=== PATIENT | male | born 1985 | race Caucasian/White ===

== ENCOUNTER 2018-08-03 18:28 | Emergency (ER) | payer BC ==
[2018-08-03 19:09] VITALS: BP 123/67; PULSE 68; RESP 18; TEMP 98.7
--- NOTE | 2018-08-03 19:59 | ED ---
Extremity Problem HPI - General Chief complaint: Extremity Problem,Nontraumatic Stated complaint: ankle pain Time Seen by Provider: 08/03/18 19:27 Source: patient Mode of arrival: ambulatory - History of Present Illness Initial comments: 33-year-old male patient presents to the emergency department today for evaluation of left ankle pain and swelling. Patient states he woke this morning and had pain to the ankle is been gradually worsening throughout the day. Patient states he did notice swelling. States the pain is located between his medial and lateral malleolus. Patient denies any known injury. States he did run 6 miles on Friday but this is not unusual for him. Denies any new footwear. Denies any redness to the joint. Denies any fever or chills. Denies any calf pain or swelling. Denies history of DVT. Patient denies any recent rash, shortness breath, chest pain, abdominal pain, nausea, vomiting, diarrhea, constipation, back pain, numbness, tingling, dizziness, weakness, hematuria, dysuria, urinary urgency, urinary frequency, headache, visual changes, or any other complaints. - Related Data Previous Rx's Medication Instructions Recorded Indomethacin [Indocin] 50 mg PO TID #15 capsule 08/03/18 Allergies Allergy/AdvReac Type Severity Reaction Status Date / Time cefazolin Allergy Rash/Hives Verified 08/03/18 20:17 Review of Systems ROS Statement: Those systems with pertinent positive or pertinent negative responses have been documented in the HPI. ROS Other: All systems not noted in ROS Statement are negative. Past Medical History Past Medical History: No Reported History History of Any Multi-Drug Resistant Organisms: None Reported Past Surgical History: No Surgical Hx Reported Past Psychological History: No Psychological Hx Reported Smoking Status: Never smoker Past Alcohol Use History: Rare Past Drug Use History: None Reported General Exam General appearance: alert, in no apparent distress, other (Physical well- developed, well-nourished adult male patient in no acute distress. Vital signs upon presentation are temperature 98.7F, pulse 68, respirations 18, blood pressure 123/67, pulse ox 99% on room air.) Eye exam: Present: normal appearance, PERRL, EOMI. Absent: scleral icterus, conjunctival injection, periorbital swelling ENT exam: Present: normal exam, normal oropharynx, mucous membranes moist Respiratory exam: Present: normal lung sounds bilaterally. Absent: respiratory distress, wheezes, rales, rhonchi, stridor Cardiovascular Exam: Present: regular rate, normal rhythm, normal heart sounds. Absent: systolic murmur, diastolic murmur, rubs, gallop, clicks Extremities exam: Present: full ROM, tenderness (Medial lateral malleolus tenderness), normal capillary refill, other (Swelling noted over the medial lateral malleolus.). Absent: normal inspection, pedal edema, joint swelling, calf tenderness Neurological exam: Present: alert, oriented X3, CN II-XII intact Psychiatric exam: Present: normal affect, normal mood Skin exam: Present: warm, dry, intact, normal color. Absent: rash Course Vital Signs 08/03/18 19:05 Temperature 98.7 F Pulse Rate 68 Respiratory 18 Rate Blood Pressure 123/67 O2 Sat by Pulse 99 Oximetry Medical Decision Making - Medical Decision Making 33-year-old male patient presented to the emergency department today for evaluation of left ankle pain and swelling. Physical examination did reveal swelling surrounding the medial lateral malleolus. Some tenderness around the medial amount lateral malleolus. No redness. No fever. X-ray was negative for any acute process. Did perform labs to rule out gout, CRP is 10. White blood cell count is 10.9. There is no concern for gout at this time. I will call patient and tell him not to take the indomethacin. He is instructed to follow- up with his primary care physician for recheck in 1-2 days. Return parameters were discussed in detail. They verbalize understanding and agree with this plan. - Lab Data Result diagrams: 08/03/18 21:24 Lab Results 08/03/18 08/03/18 Range/Units 21:24 21:24 WBC 10.9 H (3.8-10.6) k/uL RBC 4.81 (4.30-5.90) m/uL Hgb 14.2 (13.0-17.5) gm/dL Hct 41.7 (39.0-53.0) % MCV 86.7 (80.0-100.0) fL MCH 29.5 (25.0-35.0) pg MCHC 34.0 (31.0-37.0) g/dL RDW 13.9 (11.5-15.5) % Plt Count 253 (150-450) k/uL Neutrophils % 59 % Lymphocytes % 29 % Monocytes % 6 % Eosinophils % 4 % Basophils % 1 % Neutrophils # 6.4 (1.3-7.7) k/uL Lymphocytes # 3.2 (1.0-4.8) k/uL Monocytes # 0.6 (0-1.0) k/uL Eosinophils # 0.5 (0-0.7) k/uL Basophils # 0.1 (0-0.2) k/uL Uric Acid 6.0 (3.5-8.5) mg/dL C-Reactive Protein 10.2 H (<10.0) mg/L - Radiology Data Radiology results: report reviewed, image reviewed 3 views of the left ankle are obtained. Report was reviewed in its entirety. Impression by Dr. Mo shows no acute process. Disposition Clinical Impression: Pain and swelling of left ankle Disposition: HOME SELF-CARE Condition: Good Instructions (If sedation given, give patient instructions): Low Purine Diet (ED), Gout (ED), Swollen Joint (ED) Additional Instructions: Increase fluids. Take medications as directed. Keep leg elevated. Follow-up with your primary care physician for recheck in 1-2 days. Return to the emerge ncy department immediately for any new, worsening, or concerning symptoms. Prescriptions: Indomethacin [Indocin] 50 mg PO TID #15 capsule Is patient prescribed a controlled substance at d/c from ED?: No Referrals: None,Stated [Primary Care Provider] - 1-2 days Time of Disposition: 21:29
[2018-08-03] MEDS ORDERED: INDOMETHACIN 25 MG CAP PO STA (20:57)
--- NOTE | 2018-08-03 21:28 | XR ---
PROCEDURE: XR ankle complete LT - 3V DATE AND TIME: 08/03/2018 7:55 PM CLINICAL INDICATION: PHH; Pain TECHNIQUE: Department protocol COMPARISON: None FINDINGS: There is no fracture or malalignment. The soft tissues are unremarkable. IMPRESSION: NO ACUTE PROCESS.
[2018-08-03 21:38] LABS: Basophils # (A) 0.1 k/uL (0-0.2); Basophils % (A) 1 %; Eosinophils # (A) 0.5 k/uL (0-0.7); Eosinophils % (A) 4 %; HCT 41.7 % (39.0-53.0); HGB 14.2 gm/dL (13.0-17.5); Lymphocytes # (A) 3.2 k/uL (1.0-4.8); Lymphocytes % (A) 29 %; MCH 29.5 pg (25.0-35.0); MCV 86.7 fL (80.0-100.0); Mean Platelet Volume 8.2; Monocytes # (A) 0.6 k/uL (0-1.0); Monocytes % (A) 6 %; Neutrophils # (A) 6.4 k/uL (1.3-7.7); Neutrophils % (A) 59 %; Platelet Count 253 k/uL (150-450); RBC 4.81 m/uL (4.30-5.90); RDW 13.9 % (11.5-15.5); WBC 10.9 k/uL (3.8-10.6)
[2018-08-03 21:45] LABS: C Reactive Protein 10.2 mg/L (<10.0)
== END 2018-08-03 21:38 | disposition home or self-care (01) ==
LOC: EC 18:28
DX: M25.472 Effusion, left ankle (principal); M25.572 Pain in left ankle and joints of left foot; Z88.1 Allergy status to other antibiotic agents
CPT/HCPCS: 36415; 84550; 85025; 86140; 99283

== ENCOUNTER 2019-02-11 08:36 | Day surgery (SDC) | payer BC ==
[2019-02-09 10:49] VITALS: BMI 30.5
[~2019-02-11 08:36] MED LIST: LACTATED RINGERS 1,000 ML IV SCH; LIDOCAINE 1% 20 ML VIAL (10MG/ML) FOR IV START INTRADERMA PRN
[2019-02-11 09:04] VITALS: TEMP 98
[2019-02-11] MEDS ORDERED: PROPOFOL 10 MG/ML 20 ML VIAL IV ONE (09:28)
--- NOTE | 2019-02-11 09:41 | P.PCN ---
Date of Procedure: 02/11/19 Description of Procedure: BRIEF HISTORY: Patient is a 33-year-old male presenting for EGD for evaluation of heartburn. Patient has five-month history of new-onset heartburn with globus sensation in the upper esophagus. PROCEDURE PERFORMED: Esophagogastroduodenoscopy with biopsy. PREOPERATIVE DIAGNOSIS: heartburn, GERD. ESTIMATED BLOOD LOSS: Minimal. IV sedation per anesthesia. PROCEDURE: After informed consent was obtained, the patient was brought into the endoscopy unit. IV sedation was administered by Anesthesia under continuous monitoring. Initially the Olympus GIF-190 video endoscope was inserted into the mouth. Esophagus intubated without any difficulty. It was gradually advanced into the stomach and duodenum and carefully examined. The bulb and the second part of the duodenum appeared normal, with biopsies taken. The scope at this time was withdrawn to the stomach, adequately insufflated with air, and upon careful examination, mucosa of the antrum, body, cardia and the fundus appeared normal, except for some mild scattered erythema in the antrum and body suggestive of mild gastritis with biopsies taken. The scope was then withdrawn into the esophagus. The GE junction was located at 43 cm from the incisors and appeared normal with biopsies taken to rule out reflux esophagitis. Mid esophageal biopsies also taken to rule out eosinophilic esophagitis. The esophagus appeared normal. There were no erosions or ulcerations seen and the patient tolerated the procedure well. IMPRESSION: 1. Mild gastritis antrum body, biopsied. 2. Biopsies of the duodenum, GE junction, and midesophagus. RECOMMENDATIONS: The findings of this examination were discussed with the patient and his father. Okay to resume diet. Okay to resume medications. Await pathology from biopsies. Follow up in gastroenterology clinic as previously scheduled.
[2019-02-11 10:04] VITALS: BP 111/71; PULSE 60; RESP 18
== END 2019-02-11 10:19 | disposition home or self-care (01) ==
LOC: ORWHC2ENDO 08:36
PROVIDERS: ATTEND Internal Medicine
DX: K29.70 Gastritis, unspecified, without bleeding (principal); K21.0 Gastro-esophageal reflux disease with esophagitis; Z88.1 Allergy status to other antibiotic agents; Z98.818 Other dental procedure status
CPT/HCPCS: 88305; 43239; J2704

== ENCOUNTER 2019-04-28 18:22 | Emergency (ER) | payer BC ==
[2019-04-28 18:27] VITALS: RESP 18
--- NOTE | 2019-04-28 18:56 | ED ---
Chest Pain HPI - General Chief Complaint: Chest Pain Stated Complaint: chest pain Time Seen by Provider: 04/28/19 18:30 Source: patient Mode of arrival: ambulatory Limitations: no limitations - History of Present Illness Initial Comments: Patient is a 34-year-old male with history of GERD presenting to emergency Department with a chief complaint of chest pain. Patient states the symptoms began about 4 hours prior to arrival. Patient states yesterday he felt generally achy. He states he woke up today with similar symptoms and prior to onset of chest pain he took Tylenol and felt an immediate onset of right-sided chest pain. Said her chest pain is sharp and constant in nature without any radiation. States the pain is not reproducible with palpation. Denies and chest pain on exertion. Denies any shortness of breath dyspnea on exertion. Does report feeling clammy since yesterday but denies any dizziness, redness, headache, blurry vision, one-sided weakness or paresthesias. Denies any back pain, abdominal pain, nausea, vomiting or diarrhea. Denies any history of hypertension, dyslipidemia, smoking, early cardiac related . - Related Data Home Medications Medication Instructions Recorded Confirmed No Known Home Medications 02/09/19 02/11/19 Allergies Allergy/AdvReac Type Severity Reaction Status Date / Time cefazolin Allergy Rash/Hives Verified 04/28/19 18:27 Review of Systems ROS Statement: Those systems with pertinent positive or pertinent negative responses have been documented in the HPI. ROS Other: All systems not noted in ROS Statement are negative. EKG Findings - EKG Comments: EKG Findings:: Normal sinus rhythm, T-wave inversion in lead 3. Ventricular rate 71, AR 188, QRS 98, QTC 399. Past Medical History Past Medical History: GERD/Reflux Additional Past Medical History / Comment(s): HX CONCUSSIONS. History of Any Multi-Drug Resistant Organisms: None Reported Past Surgical History: No Surgical Hx Reported Additional Past Surgical History / Comment(s): PLASTIC SURGERY FOR FACIAL LACERATION, WISDOM TEETH Past Anesthesia/Blood Transfusion Reactions: No Reported Reaction Past Psychological History: No Psychological Hx Reported Smoking Status: Never smoker Past Alcohol Use History: Rare Past Drug Use History: None Reported - Past Family History Mother Family Medical History: No Reported History General Exam Limitations: no limitations General appearance: alert, in no apparent distress Head exam: Present: atraumatic, normocephalic, normal inspection Eye exam: Present: normal appearance Pupils: Present: normal accommodation ENT exam: Present: normal exam, normal oropharynx, mucous membranes moist, TM's normal bilaterally, normal external ear exam Neck exam: Present: normal inspection, full ROM Respiratory exam: Present: normal lung sounds bilaterally. Absent: respiratory distress, wheezes, rales, chest wall tenderness (No appreciable chest pain with palpation.) Cardiovascular Exam: Present: regular rate, normal rhythm, normal heart sounds GI/Abdominal exam: Present: soft. 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 States his symptoms do not feel like GERD. Chest pain nonreproducible with palpation. Patient has no other associated signs aside from feeling clammy. No chest pain or dyspnea on exertion. Patient not diabetic, hypertension, dyslipidemic, or smoker. No history of early cardiac related. Patient has a heart score of 1. EKG shows T- wave inversions in lead 3. CBC CMP are unremarkable. D-dimer and initial troponin was negative. Patient was given 325 of aspirin. On reevaluation patient reports no changes in his symptoms. Chest x-ray is unremarkable. Influenza negative. Case discussed with Dr. Salazar who cleared patient for discharge. Patient advised to follow with primary care in 1-2 days. Return parameters were thoroughly discussed with patient was understanding and agreeable. Disposition Clinical Impression: Atypical chest pain Disposition: HOME SELF-CARE Condition: Stable Instructions (If sedation given, give patient instructions): Chest Pain (ED) Additional Instructions: Follow up with the primary care. Return to emergency department if symptoms worsen. Is patient prescribed a controlled substance at d/c from ED?: No Referrals: Germán Valera MD [Primary Care Provider] - 1-2 days Time of Disposition: 20:30
[2019-04-28 19:02] VITALS: PULSE 70
[2019-04-28] MEDS ORDERED: ASPIRIN 81 MG PO STA (19:04)
[2019-04-28 19:25] LABS: Basophils % (A) 0 %; Eosinophils # (A) 0.1 k/uL (0-0.7); Eosinophils % (A) 2 %; HGB 15.9 gm/dL (13.0-17.5); Lymphocytes # (A) 1.2 k/uL (1.0-4.8); Lymphocytes % (A) 18 %; MCH 29.5 pg (25.0-35.0); MCHC 33.9 g/dL (31.0-37.0); MCV 87.2 fL (80.0-100.0); Mean Platelet Volume 8.4; Monocytes # (A) 0.5 k/uL (0-1.0); Monocytes % (A) 8 %; Neutrophils # (A) 5.1 k/uL (1.3-7.7); Neutrophils % (A) 71 %; Platelet Count 257 k/uL (150-450); RBC 5.39 m/uL (4.30-5.90); RDW 12.2 % (11.5-15.5); WBC 7.1 k/uL (3.8-10.6)
--- NOTE | 2019-04-28 19:29 | XR ---
EXAMINATION TYPE: XR chest 2V DATE OF EXAM: 04/28/2019 COMPARISON: NONE HISTORY: Chest pain TECHNIQUE: 2 views FINDINGS: Heart and mediastinum are normal. Lungs are clear. Diaphragm is normal. Bony thorax appears normal. IMPRESSION: Normal chest.
[2019-04-28 19:36] LABS: ALT 23 U/L (4-49); AST 32 U/L (17-59); African American GFR (CKD) >90 (>60 ml/min/1.73 sqM); Albumin 4.4 g/dL (3.5-5.0); Alkaline Phosphatase 67 U/L (38-126); Anion Gap 11 mmol/L; Blood Urea Nitrogen 18 mg/dL (9-20); Calcium 9.2 mg/dL (8.4-10.2); Carbon Dioxide 23 mmol/L (22-30); Chloride 102 mmol/L (98-107); Glucose 95 mg/dL (74-99); Magnesium 1.8 mg/dL (1.6-2.3); Non-African American GFR(CKD) 79 (>60 ml/min/1.73 sqM); Potassium 4.4 mmol/L (3.5-5.1); Sodium 136 mmol/L (137-145); Total Bilirubin 0.5 mg/dL (0.2-1.3); Total Protein 7.4 g/dL (6.3-8.2)
[2019-04-28 19:59] LABS: D-Dimer 0.43 mg/L FEU (<0.60); Partial Thromboplastin Time 24.5 sec (22.0-30.0); Prothrombin Time 10.4 sec (9.0-12.0)
[2019-04-28 21:07] VITALS: BP 107/63; TEMP 98
== END 2019-04-28 21:07 | disposition home or self-care (01) ==
LOC: EC 18:22
DX: R07.89 Other chest pain (principal); Z88.1 Allergy status to other antibiotic agents
CPT/HCPCS: 36415; 71046; 80053; 83735; 84484; 85025; 85379; 85610; 85730; 87502; 93005; 99285

== ENCOUNTER → 2020-11-15 | Outpatient (CLI) | payer BC ==
[2020-11-15 18:53] LABS: Basophils # (A) 0.06 X 10*3/uL (0.00-0.10); Basophils % (A) 0.8 %; Eosinophils # (A) 0.29 X 10*3/uL (0.04-0.35); Eosinophils % (A) 3.8 %; HCT 45.6 % (39.6-50.0); HGB 15.4 g/dL (13.0-17.0); Lymphocytes # (A) 2.51 X 10*3/uL (0.90-5.00); Lymphocytes % (A) 32.6 %; MCH 29.7 pg (27.0-32.0); MCHC 33.8 g/dL (32.0-37.0); MCV 87.9 fL (80.0-97.0); Mean Platelet Volume 10.9 fL (9.5-12.2); Monocytes % (A) 6.5 %; Neutrophils # (A) 4.34 X 10*3/uL (1.80-7.70); Neutrophils % (A) 56.2 %; Platelet Count 299 X 10*3/uL (140-440); RBC 5.19 X 10*6/uL (4.40-5.60); RDW 12.1 % (11.5-14.5); WBC 7.71 X 10*3/uL (4.50-10.00)
[2020-11-16 03:24] LABS: African American GFR (CKD) 100.3 (60.0-200.0); Albumin 4.7 g/dL (3.80-4.90); Albumin/Globulin Ratio 1.88 (1.60-3.17); Anion Gap 9.4 mmol/L (4.00-12.00); BUN/Creat Ratio 20.91 Ratio (12.00-20.00); Bilirubin, Conjugated 0.2 mg/dL (0.20-0.40); Calcium 9.9 mg/dL (8.7-10.3); Carbon Dioxide 25.6 mmol/L (21.6-31.8); Chol/HDL Ratio 5.06; Globulin 2.5 g/dL (1.6-3.3); LDL Cholesterol,Calculated 121.2 mg/dL (0.0-131.0); Non-African American GFR(CKD) 86.5 (60.0-200.0); Potassium 5.7 mmol/L (3.5-5.5); Total Bilirubin 0.5 mg/dL (0.2-1.2); Total Protein 7.2 g/dL (6.2-8.2); VLDL Calculation 16.8 mg/dL (5.00-40.00)
== END | disposition home or self-care (01) ==
LOC: LABWHC1 11:52
PROVIDERS: ATTEND Internal Medicine
DX: K21.9 Gastro-esophageal reflux disease without esophagitis (principal)
CPT/HCPCS: 36415; 80053; 80061; 82150; 83690; 84443; 85025; 87338

== ENCOUNTER → 2020-11-23 | Outpatient (CLI) | payer BC ==
[2020-11-23 08:39] LABS: African American GFR (CKD) >90 (>60 ml/min/1.73 sqM); Amylase 81 U/L (30-110); Anion Gap 8 mmol/L; Blood Urea Nitrogen 22 mg/dL (9-20); Calcium 9.4 mg/dL (8.4-10.2); Carbon Dioxide 27 mmol/L (22-30); Chloride 104 mmol/L (98-107); Glucose 111 mg/dL (74-99); Lipase 109 U/L (23-300); Non-African American GFR(CKD) >90 (>60 ml/min/1.73 sqM); Potassium 4.7 mmol/L (3.5-5.1); Sodium 139 mmol/L (137-145)
--- NOTE | 2020-11-23 12:24 | US ---
EXAMINATION TYPE: US abdomen complete DATE OF EXAM: 11/23/2020 COMPARISON: NONE CLINICAL HISTORY: 35-year-old male K21.9 Gastroesophageal reflux. TECHNIQUE: Multiple sonographic images of the abdomen are obtained. FINDINGS: EXAM MEASUREMENTS: Liver Length: 17.4 cm Gallbladder Wall: 0.3 cm CBD: 0.2 cm Spleen: 9.3 cm Right Kidney: 10.1x6.3x5.2 cm Left Kidney: 11.0x6.7x5.6 cm Pancreas: Only portions of the pancreatic head and neck are visualized. Suboptimal visualization of the pancreatic body and tail due to shadowing from bowel gas. Liver: Borderline enlarged at 17.4 cm. No focal lesion seen. Gallbladder: wnl Evidence for sonographic Key's sign: No CBD: wnl Spleen: wnl Kidneys: No hydronephrosis. Upper IVC: wnl Abd Aorta: wnl IMPRESSION: 1. Borderline hepatomegaly 17.4 cm but with relatively normal homogeneous appearance to the liver par enchyma. 2. No gallstones or biliary ductal dilatation.
[2020-11-24 00:39] LABS: Chol/HDL Ratio 5.06 Ratio
== END | disposition home or self-care (01) ==
LOC: RADUSWWP 07:04
PROVIDERS: ATTEND Internal Medicine
DX: K21.9 Gastro-esophageal reflux disease without esophagitis (principal)
CPT/HCPCS: 76700; 80048; 80061; 82150; 83690

== ENCOUNTER → 2021-04-03 | Outpatient (CLI) | payer BC ==
--- NOTE | 2021-04-04 07:28 | US ---
EXAMINATION TYPE: US Soft tissue head/neck DATE OF EXAM: 04/03/2021 COMPARISON: NONE CLINICAL HISTORY: R59.0 enlarged lymph nodes. Left of midline neck palpables are noted and patient is post antibiotics. Patient stated physician noted upper right anterior neck palpables too. Patient al os stated had COVID December 2020. Bilateral neck US: multiple left neck lymph nodes are seen at patient's area of concern with largest imaged just left of midline anterior neck = 1.7 x 1.1 x 1.1cm and has thickened cortex. Superior righ t neck US findings also showed multiple lymph nodes with largest seen superior and lateral neck with thick cortex = 2.2 x 1.6 x 1.1cm. Medial right neck node seen with thick cortex = 2.0 x 1.4 x 0.8cm. IMPRESSION: As above
== END | disposition home or self-care (01) ==
LOC: RADUSWWP 15:53
PROVIDERS: ATTEND Internal Medicine
DX: R59.0 Localized enlarged lymph nodes (principal)
CPT/HCPCS: 76536

== ENCOUNTER 2021-05-01 09:01 | Day surgery (SDC) | payer BC ==
[2021-05-01 09:54] VITALS: RESP 16; TEMP 97.8
[2021-05-01 10:48] VITALS: BP 122/67; PULSE 66
--- NOTE | 2021-05-01 13:05 | US ---
EXAMINATION TYPE: US FNA first lesion and core biopsy DATE OF EXAM: 05/01/2021 HISTORY: Left cervical adenopathy. FINDINGS: Maximal barrier technique was utilized. Hand hygiene achieved with soap and water and alco hol-based hand rub. The skin overlying a suitable path to the patient's left cervical adenopathy in t he upper neck] was localized with ultrasound and the overlying skin prepped and draped. Ultrasound w as utilized with sterile technique. Lidocaine was used for local anesthesia. 4 passes with a 25-gaug e needle were made and aspirated specimen submitted to cytology. A skin babatunde was made with a scalpel. An 18-gauge needle was advanced under direct ultrasound guidance and core specimen obtained of the abnormal node. Specimen submitted in flow media to Pathology. Following the procedure, hemostasis ac hieved and the patient is discharged in stable condition without complication. IMPRESSION:STATUS POST ULTRASOUND GUIDED CORE BIOPSY LEFT CERVICAL ADENOPATHY, PATHOLOGY IS PENDING. THIS PROCEDURE IS PERFORMED BY THE UNDERSIGNED.
== END 2021-05-01 10:48 | disposition home or self-care (01) ==
LOC: RADPROMAIN 09:01
PROVIDERS: ATTEND Otolaryngology
DX: L04.0 Acute lymphadenitis of face, head and neck (principal); Z88.2 Allergy status to sulfonamides
CPT/HCPCS: 10005; 88173; 88305

== ENCOUNTER → 2021-05-10 | Outpatient (CLI) | payer BC ==
[2021-05-10 15:26] LABS: Basophils # (A) 0.06 X 10*3/uL (0.00-0.10); Basophils % (A) 0.7 %; Eosinophils # (A) 0.28 X 10*3/uL (0.04-0.35); Eosinophils % (A) 3.5 %; HCT 46.8 % (39.6-50.0); HGB 15.3 g/dL (13.0-17.0); Immature Grans, Automated 0.2 %; Lymphocytes # (A) 2.63 X 10*3/uL (0.90-5.00); Lymphocytes % (A) 32.5 %; MCH 29.4 pg (27.0-32.0); MCHC 32.7 g/dL (32.0-37.0); Monocytes # (A) 0.62 X 10*3/uL (0.20-1.00); Monocytes % (A) 7.7 %; NRBC Per 100 WBC 0 /100 WBCS (0.0-0.0); Neutrophils # (A) 4.47 X 10*3/uL (1.80-7.70); Neutrophils % (A) 55.4 %; Platelet Count 334 X 10*3/uL (140-440); RDW 12.5 % (11.5-14.5); WBC 8.08 X 10*3/uL (4.50-10.00)
[2021-05-10 16:08] LABS: Erythrocyte Sedimentation Rate 5 mm/Hr (0-15)
[2021-05-10 16:53] LABS: C Reactive Protein <0.30 mg/dL (0.00-0.80)
[2021-05-10 18:01] LABS: ALT 24 U/L (10-49); AST 28 U/L (14-35); African American GFR (CKD) 89.6 (60.0-200.0); Albumin 4.8 g/dL (3.8-4.9); Alkaline Phosphatase 79 U/L (41-126); BUN/Creat Ratio 20.75 Ratio (12.00-20.00); Blood Urea Nitrogen 24.9 mg/dL (9.0-27.0); Calcium 9.8 mg/dL (8.7-10.3); Carbon Dioxide 21.5 mmol/L (20.0-27.5); Chloride 103 mmol/L (96-109); Globulin 2.4 g/dL (1.6-3.3); Glucose 103 mg/dL (70-110); Non-African American GFR(CKD) 77.3 (60.0-200.0); Potassium 4.4 mmol/L (3.5-5.5); Sodium 138 mmol/L (135-145); Total Protein 7.2 g/dL (6.2-8.2)
[2021-05-10 19:27] LABS: Gliadin AB IgA, Deaminated NEGATIVE (NEGATIVE); Gliadin AB IgA, Unit 0.2 U/mL; Gliadin AB IgG, Deaminated NEGATIVE (NEGATIVE); Gliadin AB IgG, Unit <0.4 U/mL; Tis Transglutaminase IgA Unit <0.5 AI; Tis Transglutaminase IgG Unit <0.8 U/mL; Tissue Transglutaminase IgA NEGATIVE (NEGATIVE); Tissue Transglutaminase IgG NEGATIVE (NEGATIVE)
== END | disposition home or self-care (01) ==
LOC: LABWHC1 10:16
PROVIDERS: ATTEND Nurse Practitioner Family
DX: R19.4 Change in bowel habit (principal)
CPT/HCPCS: 36415; 80053; 83516; 85025; 85652; 86140

== ENCOUNTER → 2021-08-11 | Outpatient (CLI) | payer BC ==
[2021-08-11 17:26] LABS: Basophils # (A) 0.07 X 10*3/uL (0.00-0.10); Eosinophils # (A) 0.32 X 10*3/uL (0.04-0.35); Eosinophils % (A) 4.7 %; HCT 47.3 % (39.6-50.0); HGB 15.6 g/dL (13.0-17.0); Immature Grans, Automated 0.6 %; Lymphocytes # (A) 2.35 X 10*3/uL (0.90-5.00); Lymphocytes % (A) 34.5 %; MCH 29.2 pg (27.0-32.0); MCV 88.6 fL (80.0-97.0); Mean Platelet Volume 10.9 fL (9.5-12.2); Monocytes # (A) 0.54 X 10*3/uL (0.20-1.00); Monocytes % (A) 7.9 %; NRBC Per 100 WBC 0 /100 WBCS (0.0-0.0); Neutrophils % (A) 51.3 %; Platelet Count 295 X 10*3/uL (140-440); RBC 5.34 X 10*6/uL (4.40-5.60); RDW 12.1 % (11.5-14.5); WBC 6.82 X 10*3/uL (4.50-10.00)
[2021-08-11 18:16] LABS: ALT 16 U/L (10-49); AST 21 U/L (14-35); African American GFR (CKD) 95.4 (60.0-200.0); Albumin 4.6 g/dL (3.8-4.9); Albumin/Globulin Ratio 1.73 (1.60-3.17); Alkaline Phosphatase 74 U/L (41-126); BUN/Creat Ratio 21.93 Ratio (12.00-20.00); Calcium 9.6 mg/dL (8.7-10.3); Carbon Dioxide 24.9 mmol/L (20.0-27.5); Chloride 105 mmol/L (96-109); Chol/HDL Ratio 5.36 Ratio; Globulin 2.7 g/dL (1.6-3.3); Glucose 100 mg/dL (70-110); LDL Cholesterol,Calculated 105.6 mg/dL (0.0-131.0); Non-African American GFR(CKD) 82.3 (60.0-200.0); Potassium 4.5 mmol/L (3.5-5.5); Sodium 139 mmol/L (135-145); Total Protein 7.2 g/dL (6.2-8.2); VLDL Calculation 15.64 mg/dL (5.00-40.00)
== END | disposition home or self-care (01) ==
LOC: LABWHC1 09:59
PROVIDERS: ATTEND Internal Medicine
DX: Z00.00 Encounter for general adult medical examination without abnormal findings (principal)
CPT/HCPCS: 36415; 80053; 80061; 84443; 85025

== ENCOUNTER → 2022-08-15 | Outpatient (CLI) | payer BC ==
--- NOTE | 2022-08-15 14:21 | P.SLEEP ---
History of Present Illness DATE: 08/15/2022 CONSULTATION/NEW PATIENT EVALUATION HISTORY OF PRESENT ILLNESS/SLEEP-WAKE EVALUATION: 37-year-old gentleman had been evaluated in the sleep center for possible obstructive sleep apnea hypopnea syndrome. SLEEP SCHEDULE: Usually sleep schedule from 10 PM to 5:30 AM on weekdays and from 11 PM to 6 AM on weekend. FALLING ASLEEP: Patient does have problems with falling asleep, has TV set and bedroom. DURING SLEEP: Usually patient sleeps on the side position. According to his he has loud snoring and witnessed episodes of stop breathing during the sleep. Patient wakes up from sleep up to 3 times with up to 2 episodes of nocturia. No history of hypnogogical hallucinations, sleep paralysis, or cataplexy. DURING THE DAY/WAKE STATE: In the morning patient wake up tired, falling asleep during the day, has episodes of irritability. [place] sleepiness scale is 8. Usually patient doesn't take naps. PAST MEDICAL HISTORY: Sinuses problems, headaches, acid reflux. PAST SURGICAL HISTORY: Neck biopsy with benign results. MEDICATIONS: Omeprazole 20 mg once a day. SOCIAL HISTORY: Negative for smoking, alcohol consumption occasional. FAMILY HISTORY: Diabetes, thyroid problems, asthma. REVIEW OF SYSTEMS: Loud snoring, multiple awakenings from sleep. No fevers. No double vision. No recent chest pain. No shortness of breath. No abdominal pain. No bleeding episodes. No blood in urine. No seizure episodes. PHYSICAL EXAMINATION: GENERAL: A pleasant patient without any distress. VITAL SIGNS: BP 119/82, HR 71, RR 16, weight 232.8 pounds, height 6 foot 0 inches, body mass index 31.6. HEENT: PERRLA, EOMI. Evaluation of oropharynx showed tongue protrudes midline, low position of soft palate Mallampati 2, but short distance between soft palate and posterior pharyngeal wall. NECK: Supple. No JVD. Thyroid is not palpable. 17.5 inches in circumference. LUNGS: Clear to percussion and to auscultation. Good air exchange. No wheezing or rhonchi. HEART: S1, S2 regular. No murmurs, gallops or rubs. ABDOMEN: Soft and nontender. Bowel sounds are present. No organomegaly appreciated. EXTREMITIES: No clubbing or cyanosis. COMPRESSOR OPERATOR PORTABLE: Awake, alert, and oriented x3. Cranial nerves 2 to 7 intact. There is no fasciculation or atrophy noted. No focal deficits observed. ASSESSMENT: 1. Loud snoring, witnessed episodes of stop breathing during the sleep, wide neck 17.5 inches in circumference. Obstructive sleep apnea-hypopnea syndrome. 2. Mild obesity by body mass index 31.6. 3. History of sinus problems. 4. Headaches. 5 acid reflux. PLAN: 1. Home sleep apnea test for evaluation of patient's breathing during sleep. 2. CPAP/BiPAP titration if sleep study confirms obstructive sleep apnea-hy popnea syndrome. 3. Preferable position during sleep on the side. 4. No driving if patient feels any sleepiness. Patient is aware of civil and criminal liability for unsafe driving. 5. Sleep hygiene with regular sleep time for at least 7.5-8 hours. 6. Watching weight. Thank you very much for referring this patient for consultation. Sincerely, Justin Linares MD, PhD, FAASM. Diplomat of [place] [employer], Sleep Medicine Board by [employer] [employer] [employer] [facility] [place] Past Medical History Past Medical History: GERD/Reflux Additional Past Medical History / Comment(s): HX CONCUSSIONS. History of Any Multi-Drug Resistant Organisms: None Reported Past Surgical History: No Surgical Hx Reported Additional Past Surgical History / Comment(s): PLASTIC SURGERY FOR FACIAL LACERATION, WISDOM TEETH Past Anesthesia/Blood Transfusion Reactions: No Reported Reaction Past Psychological History: No Psychological Hx Reported Smoking Status: Never smoker Past Alcohol Use History: None Reported, Rare Past Drug Use History: None Reported - Past Family History Mother Family Medical History: No Reported History Medications and Allergies Home Medications Medication Instructions Recorded Confirmed Type No Known Home Medications 02/09/19 05/01/21 History Allergies Allergy/AdvReac Type Severity Reaction Status Date / Time Sulfa (Sulfonamide AdvReac Rash/Hives Verified 05/01/21 09:22 Antibiotics) Sleep Note - Sleep Note Sleep Note: Temperature: Pulse Rate: Respiratory Rate: Blood Pressure: SpO2: Height: Weight: BMI: Neck Circumference:
== END ==
LOC: 3 N SLEEP 13:13
PROVIDERS: ATTEND Internal Medicine
DX: G47.33 Obstructive sleep apnea (adult) (pediatric) (principal); E66.9 Obesity, unspecified; R51.9 Headache, unspecified; K21.9 Gastro-esophageal reflux disease without esophagitis; J32.9 Chronic sinusitis, unspecified; Z99.89 Dependence on other enabling machines and devices; Z68.31 Body mass index [BMI] 31.0-31.9, adult; Z88.2 Allergy status to sulfonamides
CPT/HCPCS: 99211

== ENCOUNTER → 2023-02-03 | Outpatient (CLI) | payer BC ==
--- NOTE | 2023-02-04 08:23 | CT ---
EXAMINATION TYPE: CT soft tissue neck w con CT DLP: 752 mGycm, Automated exposure control for dose reduction was used. DATE OF EXAM: 02/03/2023 5:01 PM COMPARISON: Thyroid US 04/03/2021.. CLINICAL INDICATION:Male, 37 years old with history of J31.2 CHRONIC PHARYNGITIS; PHH, CHRONIC PHARYN GITIS. Left side neck/ throat pain. TECHNIQUE: Standard enhanced CT of the neck. Axial sections with coronal and sagittal reformats were obtained. Contrast used:85ml mL of Isovue 300 with IV Contrast, (None if empty) Oral contrast used: (None if empty) FINDINGS: Brain: Visualized portions are grossly unremarkable. Orbits: Unremarkable Sinuses: Grossly unremarkable. Spaces of the neck: Clear and symmetric. The pharynx appears symmetric. No evidence for mass. The pal atine tonsils bilaterally are mildly enlarged. Calcifications are seen bilaterally in the palatine to nsils. Musculoskeletal: No acute osseous pathology. Lymph nodes: Multiple nonenlarged lymph nodes are seen along both anterior chains of the neck. Vascular structures: Visualized major arteries are patent without evidence of aneurysm. Thoracic Inlet/airway: Airway is patent. The lung apices are clear. Soft tissues/Thyroid: Thyroid and remainder of the soft tissues are unremarkable. Other: none. IMPRESSION 1. No definite evidence for abscess or significant abnormality. 2. Tonsilloliths of the bilateral palatine tonsils.
== END | disposition home or self-care (01) ==
LOC: RADCTMAIN 16:35
PROVIDERS: ATTEND Otolaryngology
DX: J31.2 Chronic pharyngitis (principal); J35.8 Other chronic diseases of tonsils and adenoids
CPT/HCPCS: 70491; Q9967

== ENCOUNTER → 2023-07-07 | Outpatient (CLI) | payer BC ==
[2023-07-07 14:37] LABS: Basophils # (A) 0.07 X 10*3/uL (0.00-0.10); Eosinophils # (A) 0.31 X 10*3/uL (0.04-0.35); Eosinophils % (A) 4.4 %; HCT 44.8 % (39.6-50.0); HGB 15.1 g/dL (13.0-17.0); Lymphocytes # (A) 2.43 X 10*3/uL (0.90-5.00); Lymphocytes % (A) 34.5 %; MCH 30.3 pg (27.0-32.0); MCHC 33.7 g/dL (32.0-37.0); Mean Platelet Volume 10.9 FL (9.5-12.2); Monocytes # (A) 0.43 X 10*3/uL (0.20-1.00); Monocytes % (A) 6.1 %; NRBC Per 100 WBC 0 X 10*3/uL (0.00-0.01); Neutrophils % (A) 53.9 %; Platelet Count 279 X 10*3/uL (140-440); RBC 4.98 X 10*6/uL (4.40-5.60); RDW 12.4 % (11.5-14.5); WBC 7.05 X 10*3/uL (4.50-10.00)
[2023-07-07 15:02] LABS: ALT 16 U/L (10-49); AST 19 U/L (14-35); Albumin 4.6 g/dL (3.8-4.9); Albumin/Globulin Ratio 2.09 Ratio (1.60-3.17); Alkaline Phosphatase 74 U/L (41-126); BUN/Creat Ratio 17.09 Ratio (12.00-20.00); Blood Urea Nitrogen 18.8 mg/dL (9.0-27.0); Carbon Dioxide 24.9 mmol/L (21.6-31.8); Chloride 104 mmol/L (96-109); Chol/HDL Ratio 4.47 Ratio; Globulin 2.2 g/dL (1.6-3.3); Glucose 103 mg/dL (70-110); LDL Cholesterol,Calculated 99.9 mg/dL (0.0-131.0); Magnesium 1.8 mg/dL (1.5-2.4); Potassium 4.9 mmol/L (3.5-5.5); Sodium 140 mmol/L (135-145); Total Bilirubin 0.4 mg/dL (0.3-1.2); Total Protein 6.8 g/dL (6.2-8.2); VLDL Calculation 18.86 mg/dL (5.00-40.00)
== END | disposition home or self-care (01) ==
LOC: LABWHC1 09:43
PROVIDERS: ATTEND Internal Medicine
DX: Z00.00 Encounter for general adult medical examination without abnormal findings (principal); Z11.59 Encounter for screening for other viral diseases
CPT/HCPCS: 36415; 80053; 80061; 83735; 84443; 85025; 86803

== ENCOUNTER → 2024-03-30 | Outpatient (CLI) | payer BC ==
--- NOTE | 2024-03-30 13:58 | XR ---
EXAMINATION TYPE: XR chest 2V DATE OF EXAM: 03/30/2024 1:31 PM COMPARISON: Chest radiographs from 04/28/2019 CLINICAL INDICATION: Male, 38 years old with history of R05 cough; TECHNIQUE: XR chest 2V Frontal and lateral views of the chest. FINDINGS: Lungs/Pleura: There is no evidence of pleural effusion, focal consolidation, or pneumothorax. Pulmonary vascularity: Unremarkable. Heart/mediastinum: Cardiomediastinal silhouette is unremarkable. Musculoskeletal: No acute osseous pathology. IMPRESSION: No acute cardiopulmonary disease/process. [facility], , 03/30/2024 1:55 PM
== END | disposition home or self-care (01) ==
LOC: RADXRMAIN 13:18
PROVIDERS: ATTEND Internal Medicine
DX: R05.9 Cough, unspecified (principal)
CPT/HCPCS: 71046